=== PATIENT | male | born 2000 | race Caucasian/White ===

== ENCOUNTER 2022-10-04 22:48 | Emergency (ER) | payer OTHER ==
[~2022-10-04] VITALS: Ht 170.2 cm; Wt 83.0 kg
[2022-10-05] MEDS ORDERED: HYDROCODON-ACE1 EA10 PO (01:41)
[2022-10-05] MEDS ORDERED: AMOX TR-K CLV1 EAC1 PO (01:41)
== END 2022-10-05 03:22 | disposition home or self-care (01) ==
LOC: ED 22:48
PROC: 0HQFXZZ Repair Right Hand Skin, External Approach (ICD-10-PCS; principal; 2022-10-05)
DX: S62.511B Displaced fracture of proximal phalanx of right thumb, initial encounter for open fracture (principal); Z23 Encounter for immunization; W23.0XXA Caught, crushed, jammed, or pinched between moving objects, initial encounter
CPT/HCPCS: 12001; 73130; 73140; 87502; 90471; 90714; 99283-25; A9270; J0690; U0003